=== PATIENT | male | born 1985 | race Caucasian/White ===

== ENCOUNTER 2019-01-21 21:02 | Emergency (ER) | payer SELFPAY ==
[~2019-01-21] VITALS: Ht 172.7 cm; Wt 98.2 kg
[2019-01-21] MEDS ORDERED: IBUPROFEN 400 MG TABLET PO ONE (22:15)
[2019-01-21 23:35] VITALS: BP 118/89
== END 2019-01-21 23:59 | disposition home or self-care (01) ==
LOC: EMS 21:03
DX: S62.312A Displaced fracture of base of third metacarpal bone, right hand, initial encounter for closed fracture (principal); S62.314A Displaced fracture of base of fourth metacarpal bone, right hand, initial encounter for closed fracture; Z87.891 Personal history of nicotine dependence; W22.8XXA Striking against or struck by other objects, initial encounter; Y93.89 Activity, other specified; Y92.89 Other specified places as the place of occurrence of the external cause; Y99.8 Other external cause status